=== PATIENT | female | born 1950 | race Caucasian/White ===

== ENCOUNTER 2016-05-20 14:30 | Inpatient (IN) | payer MEDICARE, MEDICAID ==
[~2016-05-20] VITALS: Ht 165.1 cm; Wt 104.3 kg
[~2016-05-20 14:30] MED LIST: ALPR-341 PO; CALC-700 PO
[2016-05-20 15:18] VITALS: BP 143/98
[2016-05-20 16:00] VITALS: BP 143/98
[2016-05-20] MEDS ORDERED: CLONIDINE 0.1MG TABLET PO PRN (16:30)
[2016-05-20] MEDS ORDERED: ONDANSETRON HCL 4MG/2ML VIAL IV PRN (16:30)
[2016-05-20] MEDS ORDERED: ACETAMINOPHEN 325MG TABLET PO PRN (16:30)
[2016-05-20 17:06] LABS: BASOPHILS % 0.5 % (0.0-2.0); DIFFERENTIAL COMMENT 0; EOSINOPHILS % 2.1 % (0.0-5.0); HEMATOCRIT. 27.9 % (36.0-48.0); HEMOGLOBIN. 8.9 g/dL (12.0-16.0); LYMPHOCYTES % 20.1 % (20.0-50.0); MEAN PLATELET VOLUME 8.7 fl (7.4-10.4); MONOCYTES % 12.3 % (2.0-8.0); PLATELET 67 x1000/uL (130-400); RED BLOOD CELL COUNT 3.57 mill/uL (4.2-5.4); RED CELL DISTRIBUTION WIDTH 18.8 % (11.6-14.6); WHITE BLOOD COUNT 2.3 x1000/uL (4.5-11.0)
[2016-05-20 17:20] LABS: MAGNESIUM 1.6 mg/dL (1.8-2.4)
[2016-05-20 17:22] LABS: PHOSPHORUS 2.1 mg/dL (2.5-4.9)
[2016-05-20] MEDS ORDERED: ENOXAPARIN 100MG/ML SYR SUBCUT NR (17:30)
[2016-05-20] MEDS ORDERED: DIATR MEGLU/DIATRIZOATE SOLN 30ML PO NR (17:30)
[2016-05-20] MEDS ORDERED: DIATR MEGLU/DIATRIZOATE SOLN 30ML PO SCH (17:45)
[2016-05-20] MEDS ORDERED: PIPERACILLIN/TAZ 3.375G PREMIX 50 ML IV NR (18:00)
[2016-05-20] MEDS ORDERED: METRONIDAZOLE 500 MG PREMIX 100 ML IV NR (18:00)
[2016-05-20 18:51] LABS: INR 1.1; PARTIAL THROMBOPLASTIN TIME 26.1 sec (24.0-34.0); PROTHROMBIN TIME 11.6 sec
[2016-05-20] MEDS ORDERED: SODIUM PHOS,M-BASIC-D-BASIC 10 MM in DEXT 5% WATER 246.6667 ML IV NR (20:00)
[2016-05-20] MEDS ORDERED: MAGNESIUM 2 G PREMIX 50 ML IV NR (20:00)
[2016-05-20] MEDS ORDERED: METRONIDAZOLE 500 MG PREMIX 100 ML IV SCH (22:00)
[2016-05-20] MEDS: PIPERACILLIN/TAZ 3.375G PREMIX 50 ML IV SCH (22:57)
[2016-05-20] MEDS: HYDROMORPHONE HCL/PF 2MG/ML CPJ IV PRN (23:21)
[2016-05-20] MEDS: METRONIDAZOLE 500 MG PREMIX 100 ML IV SCH (23:38)
[2016-05-21] MEDS: PIPERACILLIN/TAZ 3.375G PREMIX 50 ML IV SCH ×3 (05:06→21:10)
[2016-05-21] MEDS: HYDROMORPHONE HCL/PF 2MG/ML CPJ IV PRN ×4 (05:15→22:56)
[2016-05-21 05:16] VITALS: BP 145/96
[2016-05-21 05:55] LABS: CHLORIDE 110 mEq/L (98-107); INDEX HEMOLYSI 1 (1-3); INDEX ICTERIC 1 (1-4); INDEX LIPEMIC 1 (1-3)
[2016-05-21] MEDS: METRONIDAZOLE 500 MG PREMIX 100 ML IV SCH ×3 (05:58→21:52)
[2016-05-21 06:15] LABS: ALANINE AMINOTRANSFERASE 22 IU/L (13-61); ALBUMIN 2.8 g/dL (3.4-5.0); ANION GAP 12; CALCIUM 8.9 mg/dL (8.5-10.1); CARBON DIOXIDE 26 mEq/L (21-32); HEMATOCRIT. 28.3 % (36.0-48.0); MAGNESIUM 2.1 mg/dL (1.8-2.4); MEAN CORPUSCULAR HEMOGLOBIN 24.7 pg (28.0-32.0); MEAN CORPUSCULAR HGB CONC 31.8 g/dL (31.0-37.0); MEAN CORPUSCULAR VOLUME 77.7 fL (81.0-99.0); MEAN PLATELET VOLUME 9.6 fl (7.4-10.4); PHOSPHORUS 3.6 mg/dL (2.5-4.9); PLATELET 72 x1000/uL (130-400); RED BLOOD CELL COUNT 3.64 mill/uL (4.2-5.4); RED CELL DISTRIBUTION WIDTH 19.1 % (11.6-14.6); TROPONIN I < 0.02 ng/mL (0.00-0.04); UREA NITROGEN BLOOD 15 mg/dL (7-21); WHITE BLOOD COUNT 2.4 x1000/uL (4.5-11.0); eGFR 45 mL/min (>60)
[2016-05-21 08:00] VITALS: BP 104/75
[2016-05-21 08:07] LABS: DIFFERENTIAL COMMENT 1
[2016-05-21] MEDS: DILTIAZEM HCL 60MG TABLET PO SCH ×3 (11:45→22:55)
[2016-05-21 12:00] VITALS: BP 118/88
[2016-05-21 14:32] LABS: ANISOCYTOSIS 2+; PLATELET ESTIMATE DECREASED
[2016-05-21] MEDS ORDERED: SIMETHICONE 80MG TABLET CHEW PO PRN (15:45)
[2016-05-21 16:00] VITALS: BP 141/98
[2016-05-21 20:00] VITALS: BP 129/78
[2016-05-21 23:53] VITALS: BP 119/84
[2016-05-22 04:00] VITALS: BP 126/93
[2016-05-22] MEDS: HYDROMORPHONE HCL/PF 2MG/ML CPJ IV PRN ×3 (04:51→18:14)
[2016-05-22] MEDS: PIPERACILLIN/TAZ 3.375G PREMIX 50 ML IV SCH (04:52)
[2016-05-22] MEDS: DILTIAZEM HCL 60MG TABLET PO SCH ×3 (05:40→21:48)
[2016-05-22] MEDS: METRONIDAZOLE 500 MG PREMIX 100 ML IV SCH (05:41)
[2016-05-22 08:00] VITALS: BP 116/85
[2016-05-22 12:00] VITALS: BP 131/86
[2016-05-22 14:12] LABS: MAGNESIUM 1.8 mg/dL (1.8-2.4); PHOSPHORUS 2.7 mg/dL (2.5-4.9)
[2016-05-22 16:00] VITALS: BP 147/104
[2016-05-22 16:53] LABS: CLARITY URINE CLEAR (CLEAR); COLOR URINE YELLOW (YELLOW); GLUCOSE URINE NEGATIVE (NEGATIVE); KETONES URINE NEGATIVE (NEGATIVE); LEUKOCYTE ESTERASE URINE NEGATIVE (NEGATIVE); NITRITE URINE NEGATIVE (NEGATIVE); OCCULT BLOOD URINE NEGATIVE (NEGATIVE); PH URINE 6.5 (4.5-8.0); PROTEIN URINE NEGATIVE (NEGATIVE)
[2016-05-22 18:30] LABS: INDEX HEMOLYSI 1 (1-3); INDEX ICTERIC 1 (1-4); INDEX LIPEMIC 1 (1-3); IRON 61 ug/dL (50-175); TOTAL IRON BINDING CAPACITY 343 ug/dL (250-450)
[2016-05-22 18:43] LABS: INDEX HEMOLYSI 1 (1-3)
[2016-05-22 18:46] LABS: FERRITIN 20 ng/mL (10-291)
[2016-05-22 18:58] LABS: VITAMIN B12 SERUM 218 pg/mL (211-911)
[2016-05-22 19:02] LABS: FOLIC ACID (FOLATE) SERUM > 20.00 ng/mL (>5.38)
[2016-05-22 20:00] VITALS: BP 137/90
[2016-05-23] VITALS: BP 123/77
[2016-05-23] MEDS: HYDROMORPHONE HCL/PF 2MG/ML CPJ IV PRN ×4 (00:20→21:12)
[2016-05-23 04:00] VITALS: BP 132/93
[2016-05-23] MEDS: DILTIAZEM HCL 60MG TABLET PO SCH ×4 (06:28→21:12)
[2016-05-23 07:00] LABS: HEMATOCRIT. 27.4 % (36.0-48.0); HEMOGLOBIN. 8.6 g/dL (12.0-16.0); MEAN CORPUSCULAR HEMOGLOBIN 24.6 pg (28.0-32.0); MEAN CORPUSCULAR HGB CONC 31.6 g/dL (31.0-37.0); MEAN CORPUSCULAR VOLUME 77.9 fL (81.0-99.0); MEAN PLATELET VOLUME 9.4 fl (7.4-10.4); PLATELET 61 x1000/uL (130-400); RED BLOOD CELL COUNT 3.51 mill/uL (4.2-5.4); RED CELL DISTRIBUTION WIDTH 18.6 % (11.6-14.6)
[2016-05-23 07:28] LABS: ANION GAP 9; CALCIUM 9.1 mg/dL (8.5-10.1); CARBON DIOXIDE 29 mEq/L (21-32); CHLORIDE 107 mEq/L (98-107); HAPTOGLOBIN 51 mg/dL (30-200); INDEX HEMOLYSI 1 (1-3); INDEX ICTERIC 1 (1-4); INDEX LIPEMIC 1 (1-3); UREA NITROGEN BLOOD 14 mg/dL (7-21); eGFR > 60 mL/min (>60)
[2016-05-23 07:33] LABS: DIFFERENTIAL COMMENT 1; WHITE BLOOD COUNT 1.8 x1000/uL (4.5-11.0)
[2016-05-23 08:00] VITALS: BP 135/89
[2016-05-23] MEDS: DIPHENHYDRAMINE 50MG/ML VIAL IV PRN (08:13)
[2016-05-23 10:54] LABS: ANISOCYTOSIS 2+; PLATELET ESTIMATE DECREASED
[2016-05-23 16:00] VITALS: BP 129/89
[2016-05-23 20:00] VITALS: BP 130/92
[2016-05-24] VITALS: BP 136/90
[2016-05-24 04:00] VITALS: BP 146/99
[2016-05-24] MEDS: HYDROMORPHONE HCL/PF 2MG/ML CPJ IV PRN ×3 (05:21→20:12)
[2016-05-24] MEDS: DILTIAZEM HCL 60MG TABLET PO SCH (06:23)
[2016-05-24 07:41] LABS: HEMATOCRIT. 27.3 % (36.0-48.0); HEMOGLOBIN. 8.8 g/dL (12.0-16.0); MEAN CORPUSCULAR HEMOGLOBIN 25.4 pg (28.0-32.0); MEAN CORPUSCULAR HGB CONC 32.4 g/dL (31.0-37.0); MEAN CORPUSCULAR VOLUME 78.5 fL (81.0-99.0); MEAN PLATELET VOLUME 9.5 fl (7.4-10.4); PLATELET 60 x1000/uL (130-400); RED BLOOD CELL COUNT 3.48 mill/uL (4.2-5.4); RED CELL DISTRIBUTION WIDTH 18.5 % (11.6-14.6)
[2016-05-24 07:49] LABS: CHLORIDE 107 mEq/L (98-107); INDEX HEMOLYSI 1 (1-3); INDEX ICTERIC 1 (1-4); INDEX LIPEMIC 1 (1-3)
[2016-05-24 08:00] VITALS: BP 130/83
[2016-05-24 08:04] LABS: ANION GAP 11; CALCIUM 8.9 mg/dL (8.5-10.1); CARBON DIOXIDE 25 mEq/L (21-32); UREA NITROGEN BLOOD 13 mg/dL (7-21); eGFR > 60 mL/min (>60)
[2016-05-24 08:55] LABS: DIFFERENTIAL COMMENT 1
[2016-05-24 08:58] LABS: WHITE BLOOD COUNT 1.7 x1000/uL (4.5-11.0)
[2016-05-24 09:39] LABS: ANISOCYTOSIS 2+; GIANT PLATELETS FEW; PLATELET ESTIMATE DECREASED
[2016-05-24] MEDS: DIPHENHYDRAMINE 50MG/ML VIAL IV PRN (10:07)
[2016-05-24 12:00] VITALS: BP 143/107
[2016-05-24] MEDS: LOSARTAN POTASSIUM 50 MG TABLET PO SCH (13:11)
[2016-05-24] MEDS: DILTIAZEM HCL 90MG TABLET PO SCH ×2 (13:49→20:11)
[2016-05-24 16:00] VITALS: BP 126/73
[2016-05-24 20:00] VITALS: BP 123/78
[2016-05-25] VITALS: BP 132/82
[2016-05-25] MEDS: HYDROMORPHONE HCL/PF 2MG/ML CPJ IV PRN ×3 (02:07→14:21)
[2016-05-25 04:00] VITALS: BP 148/88
[2016-05-25] MEDS: DILTIAZEM HCL 90MG TABLET PO SCH ×2 (05:30→14:20)
[2016-05-25 06:41] LABS: BASOPHILS % 0.4 % (0.0-2.0); DIFFERENTIAL COMMENT 0; EOSINOPHILS % 2.3 % (0.0-5.0); HEMATOCRIT. 27.8 % (36.0-48.0); HEMOGLOBIN. 8.9 g/dL (12.0-16.0); MEAN CORPUSCULAR HEMOGLOBIN 25.5 pg (28.0-32.0); MEAN CORPUSCULAR HGB CONC 32.2 g/dL (31.0-37.0); MEAN PLATELET VOLUME 9.7 fl (7.4-10.4); MONOCYTES % 14.2 % (2.0-8.0); NEUTROPHILS % 56.1 % (40.0-76.0); PLATELET 63 x1000/uL (130-400); RED BLOOD CELL COUNT 3.51 mill/uL (4.2-5.4); RED CELL DISTRIBUTION WIDTH 18.9 % (11.6-14.6); WHITE BLOOD COUNT 2.1 x1000/uL (4.5-11.0)
[2016-05-25 07:02] LABS: ANION GAP 9; CALCIUM 9.4 mg/dL (8.5-10.1); CARBON DIOXIDE 28 mEq/L (21-32); CHLORIDE 106 mEq/L (98-107); INDEX HEMOLYSI 1 (1-3); INDEX ICTERIC 1 (1-4); INDEX LIPEMIC 1 (1-3); UREA NITROGEN BLOOD 13 mg/dL (7-21); eGFR > 60 mL/min (>60)
[2016-05-25 08:00] VITALS: BP 138/96
[2016-05-25] MEDS: LOSARTAN POTASSIUM 50 MG TABLET PO SCH (08:13)
[2016-05-25 12:00] VITALS: BP 134/87
[2016-05-25 13:21] LABS: IMMUNOGLOBULIN A 255 mg/dL (87-352); IMMUNOGLOBULIN G 1488 mg/dL (700-1600); IMMUNOGLOBULIN M 54 mg/dL (26-217)
[2016-05-25 16:00] VITALS: BP 132/81
[2016-05-25 17:02] VITALS: BP 134/87
[2016-05-26 15:07] LABS: HGB A 98.1 % (94.0-98.0); HGB A2 1.9 % (0.7-3.1); HGB SOLUBILITY Negative (Negative)
[2016-05-27 13:45] LABS: METHYLMALONIC ACID 502 nmol/L (0-378)
== END 2016-05-25 18:55 | disposition home or self-care (01) | DRG 809 ==
LOC: 7WST 14:30
PROVIDERS: ADMIT Internal Medicine Nephrology; ATTEND Internal Medicine Nephrology
DX: D61.818 Other pancytopenia (principal); I42.9 Cardiomyopathy, unspecified; E44.1 Mild protein-calorie malnutrition; K42.9 Umbilical hernia without obstruction or gangrene; K43.2 Incisional hernia without obstruction or gangrene; B19.20 Unspecified viral hepatitis C without hepatic coma; E83.42 Hypomagnesemia; J44.9 Chronic obstructive pulmonary disease, unspecified; I25.10 Atherosclerotic heart disease of native coronary artery without angina pectoris; E66.01 Morbid (severe) obesity due to excess calories; K74.60 Unspecified cirrhosis of liver; E11.9 Type 2 diabetes mellitus without complications; I11.9 Hypertensive heart disease without heart failure; G89.29 Other chronic pain; I48.2 Chronic atrial fibrillation; K58.0 Irritable bowel syndrome with diarrhea; I49.5 Sick sinus syndrome; K72.90 Hepatic failure, unspecified without coma; N20.0 Calculus of kidney; Z86.718 Personal history of other venous thrombosis and embolism; Z87.442 Personal history of urinary calculi; Z90.49 Acquired absence of other specified parts of digestive tract; Z87.440 Personal history of urinary (tract) infections; Z98.84 Bariatric surgery status; Z88.2 Allergy status to sulfonamides; Z68.38 Body mass index [BMI] 38.0-38.9, adult; D64.9 Anemia, unspecified; D72.825 Bandemia
CPT/HCPCS: 36415; 71010; 74176; 80048; 80053; 81003; 82607; 82668; 82728; 82746; 82784; 83010; 83021; 83540; 83550; 83615; 83735; 83921; 84100; 84484; 85025; 85610; 85660; 85730; 86334; 87015; 87040; 87045; 87086; 87427; 87449; 93005; 93306; 93970; J1170; J1200; J2543; J3475; J3490; J7040; J7060; Q9963

== ENCOUNTER 2016-06-10 06:24 | Inpatient (IN) | payer MEDICARE, MEDICAID ==
[~2016-06-10] VITALS: Ht 165.1 cm; Wt 104.3 kg
[2016-06-10] MEDS ORDERED: VANCOMYCIN 1 G PREMIX 200 ML IV STA (08:03)
[2016-06-10 08:20] LABS: HEMATOCRIT 29.2 % (36.0-48.0); HEMOGLOBIN 9.4 g/dL (12.0-16.0); MEAN CORPUSCULAR HEMOGLOBIN 24.7 pg (28.0-32.0); MEAN CORPUSCULAR VOLUME 77.1 fL (81.0-99.0); PLATELET 78 x1000/uL (130-400); RED BLOOD CELL COUNT 3.79 mill/uL (4.2-5.4); WHITE BLOOD COUNT 2.3 x1000/uL (4.5-11.0)
[2016-06-10 08:21] LABS: CHLORIDE 108 mEq/L (98-107); INDEX HEMOLYSI 1 (1-3); INDEX ICTERIC 1 (1-4); INDEX LIPEMIC 1 (1-3)
[2016-06-10 08:26] LABS: ANION GAP 10; CALCIUM 9.4 mg/dL (8.5-10.1); CARBON DIOXIDE 27 mEq/L (21-32); UREA NITROGEN BLOOD 13 mg/dL (7-21); eGFR > 60 mL/min (>60)
[2016-06-10] MEDS ORDERED: DIPH1TAB PO (08:29)
[2016-06-10] MEDS ORDERED: DICY10CA88 PO (08:29)
[2016-06-10] MEDS ORDERED: OYSTER CALCIUM PO (08:29)
[2016-06-10] MEDS ORDERED: FURO20TA4 PO (08:29)
[2016-06-10] MEDS ORDERED: FAMO20TA8 PO (08:29)
[2016-06-10] MEDS ORDERED: TEMA30CA PO (08:29)
[2016-06-10] MEDS ORDERED: LISI10TA5 PO (08:29)
[2016-06-10] MEDS ORDERED: SERT25TA74 PO (08:29)
[2016-06-10] MEDS ORDERED: Eliquis PO (08:29)
[2016-06-10] MEDS ORDERED: CYCL5TAB PO (08:29)
[2016-06-10] MEDS ORDERED: Diltiazem PO (08:29)
[2016-06-10 08:32] LABS: INR 1.1; PROTHROMBIN TIME 11.2 sec
[2016-06-10] MEDS ORDERED: GENTAMICIN SULF 40MG/ML 2ML VIAL ONE (08:35)
[2016-06-10] MEDS ORDERED: LIDOCAINE HCL 1% 20ML VIAL (Pyxis) INJ ONE (08:35)
[2016-06-10] MEDS ORDERED: GENTAMICIN/NS IRRIGATION 500 ML IR ONE (08:35)
[2016-06-10] MEDS ORDERED: IODIXANOL 320MG/ML 100 ML BOTTLE IV ONE (08:48)
[2016-06-10] MEDS ORDERED: MIDAZOLAM HCL 5 MG/5 ML VIAL ONE ×2 (09:00→09:35)
[2016-06-10] MEDS ORDERED: HYDROMORPHONE HCL/PF 2MG/ML (OR) ONE (09:01)
[2016-06-10] MEDS ORDERED: HYDROCODONE/ACETAMINOPHEN 5/325MG TABLET PO PRN (11:00)
[2016-06-10] MEDS ORDERED: DIPHENOXYLATE/ATROPINE 2.5/0.025MG TABLET PO PRN (11:00)
[2016-06-10 15:00] VITALS: BP 115/69
[2016-06-10 16:00] VITALS: BP 137/86
[2016-06-10] MEDS ORDERED: HYDROCODONE/APAP 7.5/325MG 1 TAB TABLET PO PRN (16:00)
[2016-06-10] MEDS: FAMOTIDINE 20MG TABLET PO SCH (16:04)
[2016-06-10] MEDS: SERTRALINE HCL 50MG TABLET PO SCH (16:04)
[2016-06-10] MEDS: LISINOPRIL 10MG TABLET PO SCH (16:04)
[2016-06-10] MEDS: DICYCLOMINE HCL 10MG CAPSULE PO SCH (18:18)
[2016-06-10 20:00] VITALS: BP 95/71
[2016-06-10] MEDS: VANCOMYCIN 1 G PREMIX 200 ML IV SCH (21:00)
[2016-06-10] MEDS: ALPRAZOLAM 0.5 MG TABLET PO SCH (21:00)
[2016-06-10] MEDS: DILTIAZEM HCL 60MG TABLET PO SCH (21:37)
[2016-06-10] MEDS: DIPHENHYDRAMINE 50MG/ML VIAL IV PRN (23:14)
[2016-06-11] VITALS: BP 130/86
[2016-06-11] MEDS: HYDROMORPHONE HCL/PF 2MG/ML CPJ IV PRN ×4 (00:26→20:13)
[2016-06-11 04:00] VITALS: BP 100/67
[2016-06-11] MEDS: DILTIAZEM HCL 60MG TABLET PO SCH (05:10)
[2016-06-11 06:23] LABS: BASOPHILS % 0.5 % (0.0-2.0); DIFFERENTIAL COMMENT 0; EOSINOPHILS % 2.8 % (0.0-5.0); HEMATOCRIT. 28.6 % (36.0-48.0); HEMOGLOBIN. 9.2 g/dL (12.0-16.0); LYMPHOCYTES % 22.9 % (20.0-50.0); MEAN CORPUSCULAR HEMOGLOBIN 24.9 pg (28.0-32.0); MEAN CORPUSCULAR HGB CONC 32.1 g/dL (31.0-37.0); MEAN CORPUSCULAR VOLUME 77.7 fL (81.0-99.0); MEAN PLATELET VOLUME 10.1 fl (7.4-10.4); MONOCYTES % 12.3 % (2.0-8.0); NEUTROPHILS % 61.5 % (40.0-76.0); PLATELET 73 x1000/uL (130-400); RED BLOOD CELL COUNT 3.69 mill/uL (4.2-5.4); RED CELL DISTRIBUTION WIDTH 17.8 % (11.6-14.6); WHITE BLOOD COUNT 2.2 x1000/uL (4.5-11.0)
[2016-06-11] MEDS: DIPHENHYDRAMINE 50MG/ML VIAL IV PRN ×2 (06:46→16:08)
[2016-06-11 07:01] LABS: ANION GAP 12; CALCIUM 9.3 mg/dL (8.5-10.1); CARBON DIOXIDE 27 mEq/L (21-32); CHLORIDE 107 mEq/L (98-107); INDEX HEMOLYSI 1 (1-3); INDEX ICTERIC 1 (1-4); INDEX LIPEMIC 1 (1-3); UREA NITROGEN BLOOD 20 mg/dL (7-21)
[2016-06-11 07:06] LABS: eGFR > 60 mL/min (>60)
[2016-06-11 08:00] VITALS: BP 109/77
[2016-06-11] MEDS: FAMOTIDINE 20MG TABLET PO SCH (08:33)
[2016-06-11] MEDS: SERTRALINE HCL 50MG TABLET PO SCH (08:33)
[2016-06-11] MEDS: DICYCLOMINE HCL 10MG CAPSULE PO SCH ×2 (08:33→16:16)
[2016-06-11] MEDS: LISINOPRIL 10MG TABLET PO SCH (08:33)
[2016-06-11] MEDS ORDERED: FUROSEMIDE 20MG TABLET PO SCH (09:00)
[2016-06-11 12:00] VITALS: BP 110/66
[2016-06-11] MEDS: DILTIAZEM HCL 30MG TABLET PO SCH ×2 (13:05→20:12)
[2016-06-11] MEDS: VANCOMYCIN 1 G PREMIX 200 ML IV SCH (13:06)
[2016-06-11 16:00] VITALS: BP 99/72
[2016-06-11 20:00] VITALS: BP 115/87
[2016-06-11] MEDS: ALPRAZOLAM 0.5 MG TABLET PO SCH (20:10)
[2016-06-12] VITALS: BP 113/76
[2016-06-12] MEDS: HYDROMORPHONE HCL/PF 2MG/ML CPJ IV PRN ×3 (01:09→08:37)
[2016-06-12 04:00] VITALS: BP 130/82
[2016-06-12] MEDS: DILTIAZEM HCL 30MG TABLET PO SCH (06:05)
[2016-06-12 07:10] LABS: BASOPHILS % 0.4 % (0.0-2.0); DIFFERENTIAL COMMENT 0; EOSINOPHILS % 2.8 % (0.0-5.0); HEMATOCRIT. 28.2 % (36.0-48.0); HEMOGLOBIN. 9.1 g/dL (12.0-16.0); LYMPHOCYTES % 26.1 % (20.0-50.0); MEAN CORPUSCULAR HEMOGLOBIN 24.7 pg (28.0-32.0); MEAN CORPUSCULAR HGB CONC 32.2 g/dL (31.0-37.0); MEAN CORPUSCULAR VOLUME 76.5 fL (81.0-99.0); MEAN PLATELET VOLUME 9.8 fl (7.4-10.4); MONOCYTES % 13.8 % (2.0-8.0); NEUTROPHILS % 56.9 % (40.0-76.0); PLATELET 71 x1000/uL (130-400); RED BLOOD CELL COUNT 3.69 mill/uL (4.2-5.4); RED CELL DISTRIBUTION WIDTH 17.8 % (11.6-14.6); WHITE BLOOD COUNT 2.2 x1000/uL (4.5-11.0)
[2016-06-12 08:00] VITALS: BP 139/83
[2016-06-12] MEDS: FAMOTIDINE 20MG TABLET PO SCH (08:18)
[2016-06-12] MEDS: DICYCLOMINE HCL 10MG CAPSULE PO SCH (08:18)
[2016-06-12] MEDS: SERTRALINE HCL 50MG TABLET PO SCH (08:18)
[2016-06-12 08:44] LABS: ANION GAP 11; CARBON DIOXIDE 28 mEq/L (21-32); CHLORIDE 104 mEq/L (98-107); INDEX HEMOLYSI 1 (1-3); INDEX ICTERIC 1 (1-4); INDEX LIPEMIC 1 (1-3); MAGNESIUM 1.9 mg/dL (1.8-2.4); UREA NITROGEN BLOOD 20 mg/dL (7-21); eGFR > 60 mL/min (>60)
[2016-06-12 12:00] VITALS: BP 110/73
[2016-06-12 16:00] VITALS: BP 128/101
[2016-06-12] MEDS ORDERED: SULF-165 PO ×2 (16:32→16:41)
[2016-06-12] MEDS ORDERED: CEPH-568 PO (16:47)
[2016-06-12 16:49] VITALS: BP 139/83
== END 2016-06-12 17:29 | disposition home or self-care (01) | DRG 243 ==
LOC: CCL 06:24 → 5WST 06:25
PROVIDERS: ADMIT Internal Medicine Clinical Cardiac Electrophysiology; ATTEND Internal Medicine Clinical Cardiac Electrophysiology
PROC: 02HK3JZ Insertion of Pacemaker Lead into Right Ventricle, Percutaneous Approach (ICD-10-PCS; 2016-06-10)
PROC: B5171ZZ Fluoroscopy of Left Subclavian Vein using Low Osmolar Contrast (ICD-10-PCS; 2016-06-10)
PROC: 0JH604Z Insertion of Pacemaker, Single Chamber into Chest Subcutaneous Tissue and Fascia, Open Approach (ICD-10-PCS; principal; 2016-06-10 08:00)
DX: I49.5 Sick sinus syndrome (principal); D61.818 Other pancytopenia; N39.0 Urinary tract infection, site not specified; Z68.41 Body mass index [BMI] 40.0-44.9, adult; E66.01 Morbid (severe) obesity due to excess calories; I10 Essential (primary) hypertension; J44.9 Chronic obstructive pulmonary disease, unspecified; K42.9 Umbilical hernia without obstruction or gangrene; Z96.0 Presence of urogenital implants; B19.20 Unspecified viral hepatitis C without hepatic coma; I45.10 Unspecified right bundle-branch block; I48.2 Chronic atrial fibrillation; K52.9 Noninfective gastroenteritis and colitis, unspecified; K74.60 Unspecified cirrhosis of liver; Z22.322 Carrier or suspected carrier of Methicillin resistant Staphylococcus aureus; Z81.8 Family history of other mental and behavioral disorders; Z82.49 Family history of ischemic heart disease and other diseases of the circulatory system; Z83.3 Family history of diabetes mellitus; Z86.718 Personal history of other venous thrombosis and embolism; Z87.440 Personal history of urinary (tract) infections; Z90.710 Acquired absence of both cervix and uterus; Z87.891 Personal history of nicotine dependence; Z88.2 Allergy status to sulfonamides; Z95.0 Presence of cardiac pacemaker; Z98.84 Bariatric surgery status; Z91.048 Other nonmedicinal substance allergy status
CPT/HCPCS: 33207; 36415; 71010; 75820; 80048; 83735; 85025; 85027; 85610; 93005; A4565; C1786; C1892; C1893; C1898; J1170; J1200; J1580; J2250; J3370; J3490; J7050; Q9967

== ENCOUNTER → 2016-07-14 | Outpatient (CLI) | payer MEDICARE, MEDICAID ==
[~2016-07-14] MED LIST changes: +CEPH-568 PO; +CYCL5TAB PO; +DICY10CA88 PO; +DIPH1TAB PO; +Diltiazem PO; +Eliquis PO; +FAMO20TA8 PO; +FURO20TA4 PO; +LISI10TA5 PO; +OYSTER CALCIUM PO; +SERT25TA74 PO; +SULF-165 PO; +TEMA30CA PO
== END | disposition home or self-care (01) ==
LOC: US 12:41
PROVIDERS: ATTEND Internal Medicine Gastroenterology
DX: N20.0 Calculus of kidney (principal); K76.6 Portal hypertension; K74.60 Unspecified cirrhosis of liver; N26.1 Atrophy of kidney (terminal); Z90.49 Acquired absence of other specified parts of digestive tract
CPT/HCPCS: 76700

== ENCOUNTER 2016-12-29 10:12 | Day surgery (SDC) | payer MEDICARE, MEDICAID ==
[~2016-12-29] VITALS: Ht 165.1 cm; Wt 117.9 kg
[2016-12-29 11:07] LABS: BASOPHILS % 0.5 % (0.0-2.0); EOSINOPHILS % 2.4 % (0.0-5.0); HEMATOCRIT. 39.9 % (36.0-48.0); HEMOGLOBIN. 13.6 g/dL (12.0-16.0); LYMPHOCYTES % 17.1 % (20.0-50.0); MEAN CORPUSCULAR HEMOGLOBIN 30.8 pg (28.0-32.0); MEAN CORPUSCULAR VOLUME 90.4 fL (81.0-99.0); MEAN PLATELET VOLUME 8.9 fl (7.4-10.4); MONOCYTES % 9.3 % (2.0-8.0); NEUTROPHILS % 70.7 % (40.0-76.0); PLATELET 73 x1000/uL (130-400); RED BLOOD CELL COUNT 4.41 mill/uL (4.2-5.4); RED CELL DISTRIBUTION WIDTH 15.6 % (11.6-14.6)
[2016-12-29 11:20] LABS: CARBON DIOXIDE 26 mEq/L (21-32); CHLORIDE 111 mEq/L (98-107)
[2016-12-29] MEDS ORDERED: LACTATED RINGERS 1,000 ML IV SCH (12:00)
[2016-12-29] MEDS ORDERED: MEPERIDINE HCL/PF 25MG/ML CPJ IV PRN (13:30)
[2016-12-29] MEDS ORDERED: ONDANSETRON HCL 4MG/2ML VIAL IV PRN (13:30)
[2016-12-29] MEDS ORDERED: LABETALOL HCL 20MG/4ML CARPUJECT IV PRN (13:30)
[2016-12-29] MEDS ORDERED: HYDROMORPHONE HCL/PF 2MG/ML CPJ IV PRN (13:30)
[2016-12-29] MEDS ORDERED: APIX5TAB PO (13:46)
[2016-12-29] MEDS ORDERED: CYAN10009 PO (13:46)
[2016-12-29] MEDS ORDERED: TEMA15CA5 PO (13:46)
[2016-12-29] MEDS ORDERED: LEDI1TAB PO (13:46)
[2016-12-29] MEDS ORDERED: DILT360C27 PO (13:46)
[2016-12-29] MEDS ORDERED: DIGO250T4 PO (13:46)
[2016-12-29] MEDS ORDERED: FERR325T6 PO (13:46)
[2016-12-29] MEDS ORDERED: DIPH25CA83 PO (13:46)
[2016-12-29] MEDS ORDERED: VITAMIN B12 INJ INJ (13:46)
[2016-12-29] MEDS ORDERED: ASCO500W7 PO (13:46)
== END 2016-12-29 15:00 | disposition home or self-care (01) ==
LOC: OR 10:12
PROVIDERS: ATTEND Internal Medicine Gastroenterology
DX: I85.00 Esophageal varices without bleeding (principal); K29.70 Gastritis, unspecified, without bleeding; B19.20 Unspecified viral hepatitis C without hepatic coma; J45.909 Unspecified asthma, uncomplicated; Z95.0 Presence of cardiac pacemaker; F32.9 Major depressive disorder, single episode, unspecified; Z88.2 Allergy status to sulfonamides; Z86.718 Personal history of other venous thrombosis and embolism; Z88.8 Allergy status to other drugs, medicaments and biological substances; Z79.899 Other long term (current) drug therapy
CPT/HCPCS: 36415; 43235; 80048; 85025; 88305; 88312; 93005; C1893; J7120

== ENCOUNTER → 2017-03-26 | Outpatient (CLI) | payer MEDICARE, MEDICAID ==
[~2017-03-26] MED LIST changes: +APIX5TAB PO; +ASCO500W7 PO; +CYAN10009 PO; +DIGO250T4 PO; +DILT360C27 PO; +DIPH25CA83 PO; -Diltiazem PO; -Eliquis PO; +FERR325T6 PO; +LEDI1TAB PO; +TEMA15CA5 PO; +VITAMIN B12 INJ INJ
== END | disposition home or self-care (01) ==
LOC: PVL 13:11
PROVIDERS: ATTEND Internal Medicine Nephrology
DX: M79.604 Pain in right leg (principal); M79.605 Pain in left leg; M79.89 Other specified soft tissue disorders
CPT/HCPCS: 93923

== ENCOUNTER → 2017-04-13 | Outpatient (CLI) | payer MEDICARE, MEDICAID ==
[~2017-04-13] MED LIST changes: +BARIUM SULFATE 450ML ORAL SUSP ONE; +IOHEXOL-300 100 ML BOTTLE ONE
== END | disposition home or self-care (01) ==
LOC: CT 08:22
PROVIDERS: ATTEND Internal Medicine Gastroenterology
DX: K57.30 Diverticulosis of large intestine without perforation or abscess without bleeding (principal); K42.9 Umbilical hernia without obstruction or gangrene; N20.0 Calculus of kidney; N28.1 Cyst of kidney, acquired; R16.1 Splenomegaly, not elsewhere classified
CPT/HCPCS: 74177; Q9967

== ENCOUNTER → 2017-06-15 | Outpatient (CLI) | payer MEDICARE, MEDICAID ==
[~2017-06-15] MED LIST changes: -BARIUM SULFATE 450ML ORAL SUSP ONE; -IOHEXOL-300 100 ML BOTTLE ONE
== END | disposition home or self-care (01) ==
LOC: RAD 15:17
PROVIDERS: ATTEND Specialist
DX: S42.102A Fracture of unspecified part of scapula, left shoulder, initial encounter for closed fracture (principal); M85.842 Other specified disorders of bone density and structure, left hand; E11.9 Type 2 diabetes mellitus without complications; Z79.899 Other long term (current) drug therapy; X58.XXXA Exposure to other specified factors, initial encounter; Y93.89 Activity, other specified; Y92.89 Other specified places as the place of occurrence of the external cause; Y99.8 Other external cause status
CPT/HCPCS: 73110

== ENCOUNTER → 2017-08-30 | Outpatient (CLI) | payer MEDICARE, MEDICAID | END | disposition home or self-care (01) | LOC: LAB 15:33 | PROVIDERS: ATTEND Internal Medicine Nephrology | DX: R16.0 Hepatomegaly, not elsewhere classified (principal); I10 Essential (primary) hypertension | CPT/HCPCS: 36415; 82565; 84520 ==

== ENCOUNTER → 2017-08-31 | Outpatient (CLI) | payer MEDICARE, MEDICAID ==
[~2017-08-31] MED LIST changes: +IOHEXOL-300 100 ML BOTTLE ONE
== END | disposition home or self-care (01) ==
LOC: CT 14:29
PROVIDERS: ATTEND Internal Medicine Nephrology
DX: K43.9 Ventral hernia without obstruction or gangrene (principal)
CPT/HCPCS: 71270; 74178; Q9967